=== PATIENT | male | born 1985 | race Caucasian/White ===

== ENCOUNTER 2016-09-17 12:16 | Emergency (ER) | payer OTHER ==
[~2016-09-17] VITALS: Ht 177.8 cm; Wt 83.9 kg
[~2016-09-17 12:16] MED LIST: PERCOCET 5-3251 EACH PO; ZOFRAN4 MG PO
[2016-09-17 12:17] VITALS: BP 137/86
== END 2016-09-17 14:16 | disposition home or self-care (01) ==
LOC: ER 12:16
DX: Z53.21 Procedure and treatment not carried out due to patient leaving prior to being seen by health care provider (principal)